=== PATIENT | male | born 1945 ===

== ENCOUNTER → 2022-05-10 | Outpatient (REF) | payer MEDICARE, OTHER, MEDICAID ==
[2022-05-10 17:52] LABS: CREATININE, URINE 36.1 MG/DL; MALB URINE SIEMENS 78.3 MG/L; MAU/CREAT RATIO 216.8 MCG/MG (0.0-30.0)
== END ==
LOC: M LAB REF 16:42
PROVIDERS: ATTEND Nurse Practitioner Family
DX: E11.21 Type 2 diabetes mellitus with diabetic nephropathy (principal)